=== PATIENT | female | born 1980 | race Caucasian/White ===

== ENCOUNTER 2018-07-14 05:22 | Day surgery (SDC) | payer BC ==
[2018-07-12 11:52] LABS: HEMATOCRIT 40.5 % (36.0-47.0); HEMOGLOBIN 14.2 g/dL (12.0-15.5); MEAN CORPUSCULAR HEMOGLOBIN 31.8 pg (27.0-33.4); MEAN CORPUSCULAR HGB CONC 34.9 g/dL (32.0-36.0); MEAN CORPUSCULAR VOLUME 91 fl (80-97); PLATELET COUNT 314 10^3/uL (150-450); RED BLOOD COUNT 4.46 10^6/uL (3.72-5.28); RED CELL DISTRIBUTION WIDTH 14.3 % (11.5-14.0); WHITE BLOOD COUNT 8.8 10^3/uL (4.0-10.5)
[2018-07-12 11:52] LABS: APPEARANCE,URINE CLEAR; BILIRUBIN,URINE NEGATIVE (NEGATIVE); COLOR,URINE YELLOW; GLUCOSE, URINE NEGATIVE (NEGATIVE); KETONES,URINE NEGATIVE (NEGATIVE); LEUKOCYTE ESTERASE,URINE NEGATIVE (NEGATIVE); NITRITE,URINE NEGATIVE (NEGATIVE); PROTEIN,URINE NEGATIVE (NEGATIVE); URINE SPECIFIC GRAVITY 1.023; UROBILINOGEN,URINE NEGATIVE mg/dL (<2.0)
--- NOTE | 2018-07-12 12:13 | RADIOLOGY REPORT (SQ) ---
EXAM DESCRIPTION: CHEST PA/LATERAL COMPLETED DATE/TIME: 07/12/2018 11:53 am REASON FOR STUDY: PRE-OP COMPARISON: None. EXAM PARAMETERS: NUMBER OF VIEWS: two views TECHNIQUE: Digital Frontal and Lateral radiographic views of the chest acquired. RADIATION DOSE: NA LIMITATIONS: none FINDINGS: LUNGS AND PLEURA: No opacities, masses or pneumothorax. No pleural effusion. MEDIASTINUM AND HILAR STRUCTURES: No masses or contour abnormalities. HEART AND VASCULAR STRUCTURES: Heart normal size. No evidence for failure. BONES: No acute findings. HARDWARE: None in the chest. OTHER: No other significant finding. IMPRESSION: NO SIGNIFICANT RADIOGRAPHIC FINDING IN THE CHEST. TECHNICAL DOCUMENTATION: JOB ID: [id number] [employer]- All Rights Reserved Reading location - IP/workstation name: [email or web address]
[2018-07-12 12:18] LABS: ANION GAP 6 (5-19); BLOOD UREA NITROGEN 14 mg/dL (7-20); CALCIUM 8.9 mg/dL (8.4-10.2); CARBON DIOXIDE 32 mmol/L (22-30); CHLORIDE 101 mmol/L (98-107); GLUCOSE 106 mg/dL (75-110); POTASSIUM 4.4 mmol/L (3.6-5.0); SODIUM 138.5 mmol/L (137-145)
[~2018-07-14 05:22] MED LIST: CEFAZOLIN 1 GM/D5W RTU 1 GM/50 ML RTUPB IV PRN; LACTATED RINGERS 1000 ML IV PRN; LIDOCAINE 0.5% INJ-PF (5 MG/ML) 50 ML SDV SUBCUT PRN
[2018-07-14] MEDS ORDERED: CEFAZOLIN 1 GM/D5W RTU 1 GM/50 ML RTUPB IV ONE (05:58)
[2018-07-14] MEDS ORDERED: LIDOCAINE 1% INJ-PF (10 MG/ML) 30 ML SDV ONE (06:33)
[2018-07-14] MEDS ORDERED: MIDAZOLAM 2 MG/2 ML INJ ONE ×2 (06:38→07:49)
[2018-07-14] MEDS ORDERED: ONDANSETRON HCL INJ/PF 4 MG/2 ML SDV ONE (06:38)
[2018-07-14] MEDS ORDERED: LIDOCAINE 2% INJ-PF (20 MG/ML) 10 ML AMPUL ONE (06:38)
[2018-07-14] MEDS ORDERED: KETOROLAC TROMETHAMINE 60 MG/2 ML SDV ONE (06:38)
[2018-07-14] MEDS ORDERED: FENTANYL CITRATE INJ/PF 100 MCG/2 ML AMPUL ONE (06:38)
[2018-07-14] MEDS ORDERED: PROPOFOL INJ 200 MG/20 ML VIAL IV ONE ×2 (06:39→07:49)
[2018-07-14] MEDS ORDERED: ALBUTEROL SULFATE HFA (90 MCG/PUFF) 200 PUFF/8.5 GM MDI IH ONE (07:49)
[2018-07-14] MEDS ORDERED: SUGAMMADEX SODIUM 200 MG/2 ML SDV IV ONE (07:56)
[2018-07-14] MEDS ORDERED: DEXMEDETOMIDINE INJ 80 MCG/20 ML VIAL IV ONE (08:02)
[2018-07-14] MEDS ORDERED: OXYCODONE-ACETAMINOPHEN 5-325 MG TABLET PO PRN ×4 (08:21→08:25)
[2018-07-14] MEDS ORDERED: MORPHINE SULFATE 10 MG/ML INJ INJ PRN (08:24)
[2018-07-14] MEDS ORDERED: MORPHINE SULFATE 10 MG/ML INJ IV PRN (08:25)
[2018-07-14] MEDS ORDERED: MEPERIDINE HCL/PF INJ 25 MG/1 ML DISP.SYRIN IV PRN (08:25)
[2018-07-14] MEDS ORDERED: DIPHENHYDRAMINE HCL 50 MG/ML VIAL IV PRN (08:25)
[2018-07-14] MEDS ORDERED: ONDANSETRON HCL INJ/PF 4 MG/2 ML SDV IV PRN (08:25)
[2018-07-14] MEDS ORDERED: PROMETHAZINE HCL INJ 25 MG/1 ML VIAL IV PRN ×2 (08:25)
[2018-07-14] MEDS ORDERED: FENTANYL CITRATE INJ/PF 100 MCG/2 ML AMPUL IV PRN ×3 (08:25)
[2018-07-14] MEDS ORDERED: PROMETHAZINE HCL INJ 25 MG/1 ML VIAL IM PRN (08:33)
[2018-07-14] MEDS ORDERED: ACETAMINOPHEN 1,000 MG/100 ML RTUPB IV ONE (08:36)
[2018-07-14] MEDS ORDERED: OXYCODONE-ACETAMINOPHEN 5-325 MG TABLET ONE (09:13)
[2018-07-14 12:18] VITALS: BP 147/98
[2018-07-14] MEDS ORDERED: VECURONIUM BROMIDE INJ 10 MG VIAL IV ONE (13:26)
[2018-07-14] MEDS ORDERED: DEXAMETHASONE SOD PHOSPHATE INJ 4 MG/1 ML VIAL ONE (13:26)
[2018-07-14] MEDS ORDERED: SUCCINYLCHOLINE CHLORIDE INJ 200 MG/10 ML VIAL ONE (13:26)
[2018-07-14] MEDS ORDERED: IBUPROFEN 800 MG TABLET PO SCH (14:00)
--- NOTE | 2018-07-14 16:02 | OPERATIVE REPORT E ---
Operative Report NAME: EVGENY CHEEMA : 1980 AGE: 37Y DATE OF SURGERY: 07/14/2018 ROOM: PREOPERATIVE DIAGNOSIS: Menorrhagia. POSTOPERATIVE DIAGNOSES: 1. Menorrhagia. 2. Small endometrial polyp. OPERATION: Hysteroscopy and NovaSure ablation. SURGEON: KELLY ARMAS M.D. COMPLICATIONS: None surgically. She had some bronchospasm that ultimately required intubation from LMAC. She had 1% lidocaine paracervical block placed. ESTIMATED BLOOD LOSS: 10 mL. FINDINGS: That of a small 4 to 5 mm endometrial polyp that was left in situ and ablated. Pelvic exam *------* by patient's size. Uterine measurements were 6 cm length x 4.5 cm width, and 149 watt-seconds power was used for approximately a minute and a half. INDICATIONS FOR PROCEDURE: The patient had abnormal uterine bleeding unresponsive to usual outpatient management. She desired attempt at definitive therapy. The usual risks of bleeding, infection, anesthesia, and damage to organs or tissues was discussed with the patient who understood. PROCEDURE: The patient was taken to the operating room and was placed in the modified lithotomy position. Adequate anesthesia was attempted, ultimately obtained with intubation. The exam under anesthesia was performed. The bladder was left undrained. Antibiotics had been given. Surgical time out was performed. A 1% lidocaine was placed in the paracervical block region, approximately 5 mL. Uterine measurements were taken and hysteroscopy ensued. Uterine integrity was confirmed prior to burn. Burn ensued. Re-hysteroscopy demonstrated good uterine integrity. The patient was awakened and taken to the recovery room in stable condition. DICTATING PHYSICIAN: KELLY ARMAS M.D. [id number] PHY#: [id number] ID: [id number] JOB#: [id number] ACCT: [id number] cc:KELLY ARMAS M.D. >
== END 2018-07-14 10:10 | disposition home or self-care (01) ==
LOC: OROUT 05:22
PROVIDERS: ATTEND Specialist
DX: N92.0 Excessive and frequent menstruation with regular cycle (principal); N84.0 Polyp of corpus uteri; J98.01 Acute bronchospasm; M19.90 Unspecified osteoarthritis, unspecified site; I10 Essential (primary) hypertension; Z79.899 Other long term (current) drug therapy; F17.210 Nicotine dependence, cigarettes, uncomplicated
CPT/HCPCS: 86900; 86901; 36415 ×2; 86850; 84132; 84703; 85027; 80048; 81001; 71046; 58563; J2250; J0690; J1100; J1885; J3010; J3490 ×6; J0330; J2405; J2704; J0131; 952

== ENCOUNTER → 2018-08-09 | Outpatient (CLI) | payer BC ==
--- NOTE | 2018-08-09 15:24 | RADIOLOGY REPORT (SQ) ---
EXAM DESCRIPTION: L SPINE WHOLE COMPLETED DATE/TIME: 08/09/2018 1:26 pm REASON FOR STUDY: LUMBOSACRAL RADICULOPATHY, RT SI JOINT PAIN COMPARISON: None. NUMBER OF VIEWS: Five views including obliques. TECHNIQUE: AP, lateral, oblique, and sacral radiographic images acquired of the lumbar spine. LIMITATIONS: None. FINDINGS: MINERALIZATION: Normal. SEGMENTATION: Normal. No transitional anatomy. ALIGNMENT: Normal. VERTEBRAE: Maintained height. No fracture or worrisome bone lesion. DISCS: Preserved height. No significant osteophytes or end plate irregularity. POSTERIOR ELEMENTS: Pedicles and facets are intact. No pars defect. Minimal lower lumbar facet arth ropathy. HARDWARE: None in the spine. PARASPINAL SOFT TISSUES: Normal. PELVIS: Intact as visualized. No fractures or worrisome bone lesions. SI joints intact. OTHER: No other significant finding. IMPRESSION: No evidence of acute bony abnormality. No significant disc height loss. Minimal lower lumbar facet arthropathy. TECHNICAL DOCUMENTATION: JOB ID: [id number] [employer]- All Rights Reserved Reading location - IP/workstation name: [email or web address]
--- NOTE | 2018-08-09 15:25 | RADIOLOGY REPORT (SQ) ---
EXAM DESCRIPTION: SACROILIAC JOINTS COMPLETED DATE/TIME: 08/09/2018 1:26 pm REASON FOR STUDY: LUMBOSACRAL RADICULOPATHY, RT SI JOINT PAIN COMPARISON: None. NUMBER OF VIEWS: Three views. TECHNIQUE: AP and oblique views of the sacroiliac joints. LIMITATIONS: None. FINDINGS: MINERALIZATION: Normal. BONES: No acute fracture or dislocation. No worrisome bone lesions. No significant osteophytes. JOINTS: The sacroiliac joints are patent. No unusual widening, sclerosis, or fusion. SOFT TISSUES: No soft tissue swelling. No radio-opaque foreign body. Scattered pelvic phleboliths. OTHER: No other significant finding. IMPRESSION: NORMAL STUDY OF THE SACROILIAC JOINTS. TECHNICAL DOCUMENTATION: JOB ID: [id number] [employer]- All Rights Reserved Reading location - IP/workstation name: [email or web address]
== END ==
LOC: RAD 13:00
PROVIDERS: ATTEND Nurse Practitioner Primary Care
DX: M54.17 Radiculopathy, lumbosacral region (principal)
CPT/HCPCS: 72110; 72200

== ENCOUNTER 2018-11-23 11:31 | Emergency (ER) | payer BC ==
[2018-11-23] MEDS ORDERED: CLINDAMYCIN 600 MG/D5W RTU 600 MG/50 ML RTUPB IV ONE (12:03)
[2018-11-23] MEDS ORDERED: LIDOCAINE 1% INJ (10 MG/ML) 10 ML MDV INJ ONE (12:03)
--- NOTE | 2018-11-23 12:05 | ER Document Report ---
ED Medical Screen (RME) - General Chief Complaint: Abscess Stated Complaint: ABSCESS/LOWER ABDOMINAL Time Seen by Provider: 11/23/18 12:00 Primary Care Provider: AL REAL MD [Primary Care Provider] - Follow up as needed Mode of Arrival: Ambulatory Information source: Patient TRAVEL OUTSIDE OF THE [place] IN LAST 30 DAYS: No - HPI Patient complains to provider of: ABSCESS Notes: 11/23/18 12:04 Patient here with complaints of abscess to the left abdomen. The patient states that this started a few days ago but is progressively gotten worse. She thinks she may have been running some fevers. Exam Abscess with large amount of cellulitis to the left lower abdominal wall. Tenderness to palpation. Nontoxic-appearing with no distress. Plan CBC, CMP, saline lock. IV clindamycin. Patient will require an I&D. An initial examination was made on the patient as part of the triage process, and it was determined a more comprehensive evaluation was necessary. Initial labs were ordered and patient was transferred to another provider in the ED who assumed care and finished evaluation and plan. - Related Data Allergies/Adverse Reactions: No Known Allergies Allergy (Verified 07/25/18 14:07) Past Medical History - Past Medical History Cardiac Medical History: Reports: Hx Hypertension Denies: Hx Coronary Artery Disease, Hx Heart Attack Pulmonary Medical History: Denies: Hx Asthma, Hx Bronchitis, Hx COPD, Hx Pneumonia Neurological Medical History: Denies: Hx Cerebrovascular Accident, Hx Seizures Renal/ Medical History: Denies: Hx Peritoneal Dialysis Musculoskeltal Medical History: Denies Hx Arthritis Psychiatric Medical History: Reports: Hx Depression Past Surgical History: Reports: Hx Orthopedic Surgery - Immunizations Hx Diphtheria, Pertussis, Tetanus Vaccination: Yes History of Influenza Vaccine for 04/2017 - 09/2017 Season: No Physical Exam - Vital signs Vitals: Temp Pulse Resp BP Pulse Ox 98.1 F 100 20 155/109 H 97 11/23/18 11:37 11/23/18 11:37 11/23/18 11:37 11/23/18 11:37 11/23/18 11:37 Course - Vital Signs Vital signs: Temp Pulse Resp BP Pulse Ox 98.1 F 100 20 155/109 H 97 11/23/18 11:37 11/23/18 11:37 11/23/18 11:37 11/23/18 11:37 11/23/18 11:37 Doctor's Discharge - Discharge Referrals: AL REAL MD [Primary Care Provider] - Follow up as needed
[2018-11-23 12:55] LABS: ABSOLUTE EOSINOPHILS # (AUTO) 0.2 10^3/uL (0.0-0.6); ABSOLUTE LYMPHOCYTES (AUTO) 2.3 10^3/uL (0.5-4.7); ABSOLUTE MONOCYTES (AUTO) 0.5 10^3/uL (0.1-1.4); BASOPHILS % (AUTO) 0.5 % (0-2); EOSINOPHILS % (AUTO) 2.3 % (0-6); HEMATOCRIT 41.3 % (36.0-47.0); LYMPHOCYTES % (AUTO) 24.9 % (13-45); MEAN CORPUSCULAR HEMOGLOBIN 32.3 pg (27.0-33.4); MEAN CORPUSCULAR VOLUME 95 fl (80-97); PLATELET COUNT 323 10^3/uL (150-450); RED BLOOD COUNT 4.34 10^6/uL (3.72-5.28); RED CELL DISTRIBUTION WIDTH 14.3 % (11.5-14.0); SEGMENTED NEUTROPHILS % (AUTO) 66.3 % (42-78); TOTAL CELLS COUNTED % (AUTO) 100 %; WHITE BLOOD COUNT 9.1 10^3/uL (4.0-10.5)
[2018-11-23 13:23] LABS: ALANINE AMINOTRANSFERASE 33 U/L (9-52); ALKALINE PHOSPHATASE 79 U/L (38-126); ANION GAP 11 (5-19); ASPARTATE AMINO TRANSFERASE 26 U/L (14-36); BILIRUBIN,DIRECT 0.3 mg/dL (0.0-0.4); BILIRUBIN,TOTAL 0.6 mg/dL (0.2-1.3); BLOOD UREA NITROGEN 14 mg/dL (7-20); CALCIUM 9.4 mg/dL (8.4-10.2); CARBON DIOXIDE 28 mmol/L (22-30); CHLORIDE 102 mmol/L (98-107); GLUCOSE 108 mg/dL (75-110); POTASSIUM 4.2 mmol/L (3.6-5.0); SODIUM 141.2 mmol/L (137-145); TOTAL PROTEIN 7.4 g/dL (6.3-8.2)
[2018-11-23] MEDS ORDERED: LIDOCAINE 1% INJ-PF (10 MG/ML) 30 ML SDV INJ ONE (14:51)
--- NOTE | 2018-11-23 16:29 | ER Document Report ---
ED Skin Rash/Insect Bite/Abscs - General Chief Complaint: Abscess Stated Complaint: ABSCESS/LOWER ABDOMINAL Time Seen by Provider: 11/23/18 12:00 Primary Care Provider: AL REAL MD [ACTIVE STAFF] - Follow up as needed Mode of Arrival: Ambulatory Information source: Patient Notes: Patient is a 38-year-old female comes emergency room complaining of a abscess on her left lower abdominal area. Patient states it started as an ingrown hair and a pimple she tried to pop it approximately 3 days ago and it is since then expanded to much larger size. Patient states she has had only one abscess before in her life and has been quite a few years back. She denies have any history of diabetes but she has a history of hypertension and she does smoke a pack of cigarettes a day. Last missed her period is been no infrequent since she had a bone lesion done in July. Patient denies any fevers no nausea or vomiting she has had no shakes no chills. TRAVEL OUTSIDE OF THE [place] IN LAST 30 DAYS: No - HPI Patient complains to provider of: Tender/swollen area Onset: Other - 3 days Onset/Duration: Gradual, Persistent Quality of pain: Achy Severity: Moderate Pain Level: 3 Skin Character: Abscess, Erythema, Tenderness, Thickening, Warm Skin Temperature: Warm Quality of rash: Itchy, Painful Exacerbated by: Movement, Walking Relieved by: Denies Similar symptoms previously: Yes Recently seen / treated by doctor: No - Related Data Allergies/Adverse Reactions: No Known Allergies Allergy (Verified 07/25/18 14:07) Past Medical History - General Information source: Patient - Social History Smoking Status: Current Every Day Smoker Cigarette use (# per day): Yes - Pack a day Chew tobacco use (# tins/day): No Smoking Education Provided: No Frequency of alcohol use: Rare Drug Abuse: None Family History: Reviewed & Not Pertinent Patient has suicidal ideation: No Patient has homicidal ideation: No - Past Medical History Cardiac Medical History: Reports: Hx Hypertension Denies: Hx Coronary Artery Disease, Hx Heart Attack Pulmonary Medical History: Denies: Hx Asthma, Hx Bronchitis, Hx COPD, Hx Pneumonia Neurological Medical History: Denies: Hx Cerebrovascular Accident, Hx Seizures Renal/ Medical History: Denies: Hx Peritoneal Dialysis Musculoskeletal Medical History: Denies Hx Arthritis Psychiatric Medical History: Reports: Hx Depression Past Surgical History: Reports: Hx Orthopedic Surgery - Immunizations Hx Diphtheria, Pertussis, Tetanus Vaccination: Yes Review of Systems - Review of Systems Constitutional: No symptoms reported EENT: No symptoms reported Cardiovascular: No symptoms reported Respiratory: No symptoms reported Gastrointestinal: No symptoms reported Genitourinary: No symptoms reported Female Genitourinary: No symptoms reported Musculoskeletal: No symptoms reported Skin: See HPI, Other - Abscess/cellulitis Hematologic/Lymphatic: No symptoms reported Neurological/Psychological: No symptoms reported -: Yes All other systems reviewed and negative Physical Exam - Vital signs Vitals: Temp Pulse Resp BP Pulse Ox 98.1 F 100 20 155/109 H 97 11/23/18 11:37 11/23/18 11:37 11/23/18 11:37 11/23/18 11:37 11/23/18 11:37 Interpretation: Normal - Notes Notes: PHYSICAL EXAMINATION: GENERAL: Patient is well-nourished well-developed morbidly obese female who is in no apparent distress on physical exam but does appear to be somewhat uncomfortable. HEAD: Atraumatic, normocephalic. LUNGS: Breath sounds clear to auscultation bilaterally and equal. No wheezes rales or rhonchi. HEART: Regular rate and rhythm without murmurs ABDOMEN: Soft, nontender, nondistended abdomen. No guarding, no rebound. Further examination shows patient has a large area on the left lower abdominal section. There is approximately a area that is 27 cm long by 15 cm wide is the base of the cellulitis. There is in the center area a 6 cm x 3 cm more indurated center and that has in the middle of it a one by one area where the original lesion occurred the pimple/infected hair. This is also the area that appears to where they have attempted to express any kind of pus from it. Palpation of the area does show some induration some mild fluctuance but only in the middle of that 1 x 1 cm area. It is moderately tender to touch at this time. It does not feel exceptionally deep on palpation and mostly feels like inflamed tissue. There is a large amount of striated in the area as well that are more firm to palpation secondary to the inflammation. Female : deferred Musculoskeletal: Normal range of motion, no pitting or edema. No cyanosis. NEUROLOGICAL: Normal speech, normal gait. Normal sensory, motor exams PSYCH: Normal mood, normal affect. SKIN: Poor description of skin condition. See abdomen above Course - Re-evaluation Re-evalutation: 11/23/18 16:29 At this time patient's white count is normal. She looks good and I believe we can try outpatient therapy and treatment at this point. I have informed patient to keep an eye on it if she should spike a fever she should notice expansion outside of the marked lines that is prominent she is to return to ER for possible admission at that time. She is in agreement with this treatment. We are also placing her on 2 antibiotics doxycycline and Keflex. Mom also placing patient on Diflucan. She is to use warm moist compresses 3-4 times a day which we discussed her not to go into the microwave. She is also not to go into a [employer] stream pool or bathtub until such time as the packing has been pulled. - Vital Signs Vital signs: Temp Pulse Resp BP Pulse Ox 98.1 F 100 20 155/109 H 97 11/23/18 11:37 11/23/18 11:37 11/23/18 11:37 11/23/18 11:37 11/23/18 11:37 - Laboratory Result Diagrams: 11/23/18 12:28 11/23/18 12:28 Laboratory results interpreted by me: 11/23/18 12:28 RDW 14.3 H Procedures - Incision and Drainage Left Lower Abdomen Time completed: 16:31 Type: Complex Anesthetic type: 1% Lidocaine mL's of anesthetic: 8 Blade size: 11 I&D procedure: Betadine prep applied, Chlorprep applied Incision Method: Incision made by scalpel Amount/type of drainage: Thick core was removed with applied pressure. Then followed moderate amoun Notes: 11/23/18 16:32 There is a moderate amount of some whitish-pinkish blood mix of pus which was expressed outside of the initial incision point. The incision was approximately 1 cm to 1-1/2 cm in length. Loculations were broken up with forceps. And then packed with approximately 7 to 8 inches of out-of-home. Patient tolerated this procedure without a problem. Discharge - Discharge Clinical Impression: Abscess Cellulitis Qualifiers: Site of cellulitis: trunk Site of cellulitis of trunk: abdominal wall Qualified Code(s): L03.311 - Cellulitis of abdominal wall Condition: Stable Disposition: HOME, SELF-CARE Instructions: Abscess ([facility]), Cephalexin ([facility]), MRSA Cellulitis ([facility]), Post Incision and Drainage, Doxycycline ([facility]) Additional Instructions: As we discussed home and rest. Use warm moist compresses 3-4 times a day with a wash rag as warm as you stand from the sink do not set it in the microwave or heated up beyond being able to touch. I am also writing for Diflucan pills this will stop to get a yeast infection. If any chance of the string comes out and is not a huge deal just continue with the moist compresses and monitor progress of the area. Should the area start to expand to get worse to do spike a fever becoming chilled return to ER once for possible admission. If strength does not come out return to ER 48 hours for a recheck and pulling of the packing. Prescriptions: Cephalexin Monohydrate [Keflex 500 mg Capsule] 500 mg PO QID #40 capsule Doxycycline Hyclate 100 mg PO BID #20 capsule Fluconazole [Diflucan] 150 mg PO ONCE PRN #2 tablet PRN Reason: Forms: Elevated Blood Pressure, Smoking Cessation Education Referrals: AL REAL MD [ACTIVE STAFF] - Follow up as needed
[2018-11-23 16:57] VITALS: BP 159/106
== END 2018-11-23 16:56 | disposition home or self-care (01) ==
LOC: ER 11:31
DX: L02.211 Cutaneous abscess of abdominal wall (principal); L03.311 Cellulitis of abdominal wall; I10 Essential (primary) hypertension; F17.210 Nicotine dependence, cigarettes, uncomplicated
CPT/HCPCS: 99283; 96365; 36415; 87040; 87070; 87205; 85025; 87075; 87077; 80053; 87186; 10060; A6266

== ENCOUNTER 2018-11-25 14:49 | Emergency (ER) | payer BC ==
[2018-11-25] MEDS ORDERED: VANCOMYCIN HCL INJ 1000 MG VIAL IV ONE ×2 (16:01→19:45)
--- NOTE | 2018-11-25 16:06 | ER Document Report ---
ED Medical Screen (RME) - General Chief Complaint: Wound Infection Stated Complaint: RASH Time Seen by Provider: 11/25/18 15:58 Primary Care Provider: NICOLETTE REAL NP [Primary Care Provider] - Follow up as needed TRAVEL OUTSIDE OF THE [place] IN LAST 30 DAYS: No - HPI Notes: 11/25/18 16:01 Patient is a 38-year-old female who presents for recheck of her abscess/cellulitis to her left lower abdomen after incision and drainage was performed 2 days ago. Patient states that she has noticed expansion of the erythema from the marked border. Patient has felt subjectively warm/feverish. She has been taking her doxycycline and Keflex as directed. Wound culture did grow MRSA and appears to be resistant to cephalosporins, but susceptible to doxycycline. Denies DE LA O, neck pain, URI, CP, SOB. I have treated and performed a rapid initial assessment of this patient. A comprehensive ED assessment and evaluation of the patient, analysis of test results and completion of medical decision making process will be conducted by additional ED providers. PHYSICAL EXAMINATION: GENERAL: Well-appearing, well-nourished and in no acute distress. A&Ox4. Answers questions appropriately. LUNGS: Breath sounds clear to auscultation bilaterally and equal. No wheezes rales or rhonchi. HEART: Regular rate and rhythm without murmurs, rubs, gallops. Skin: + erythema, large area, tenderness noted to the left lower abd. Erythema does expand beyond medial lower marked skin border. - Related Data Allergies/Adverse Reactions: No Known Allergies Allergy (Verified 07/25/18 14:07) Past Medical History - Past Medical History Cardiac Medical History: Reports: Hx Hypertension Denies: Hx Coronary Artery Disease, Hx Heart Attack Pulmonary Medical History: Denies: Hx Asthma, Hx Bronchitis, Hx COPD, Hx Pneumonia Neurological Medical History: Denies: Hx Cerebrovascular Accident, Hx Seizures Renal/ Medical History: Denies: Hx Peritoneal Dialysis Musculoskeltal Medical History: Denies Hx Arthritis Psychiatric Medical History: Reports: Hx Depression Past Surgical History: Reports: Hx Orthopedic Surgery - Immunizations Hx Diphtheria, Pertussis, Tetanus Vaccination: Yes History of Influenza Vaccine for 04/2017 - 09/2017 Season: No Physical Exam - Vital signs Vitals: Temp Pulse Resp BP Pulse Ox 98.1 F 108 H 20 140/85 H 97 11/25/18 15:24 11/25/18 15:24 11/25/18 15:24 11/25/18 15:24 11/25/18 15:24 Course - Vital Signs Vital signs: Temp Pulse Resp BP Pulse Ox 98.1 F 108 H 20 140/85 H 97 11/25/18 15:24 11/25/18 15:24 11/25/18 15:24 11/25/18 15:24 11/25/18 15:24 Doctor's Discharge - Discharge Referrals: NICOLETTE REAL NP [Primary Care Provider] - Follow up as needed
[2018-11-25 16:31] LABS: ABSOLUTE EOSINOPHILS # (AUTO) 0.2 10^3/uL (0.0-0.6); ABSOLUTE LYMPHOCYTES (AUTO) 2.5 10^3/uL (0.5-4.7); ABSOLUTE MONOCYTES (AUTO) 0.5 10^3/uL (0.1-1.4); ABSOLUTE NEUT (AUTO) 6.4 10^3/uL (1.7-8.2); BASOPHILS % (AUTO) 0.4 % (0-2); EOSINOPHILS % (AUTO) 2.1 % (0-6); HEMATOCRIT 43.4 % (36.0-47.0); HEMOGLOBIN 14.4 g/dL (12.0-15.5); LYMPHOCYTES % (AUTO) 26.2 % (13-45); MEAN CORPUSCULAR HEMOGLOBIN 31.5 pg (27.0-33.4); MEAN CORPUSCULAR HGB CONC 33.2 g/dL (32.0-36.0); MEAN CORPUSCULAR VOLUME 95 fl (80-97); MONOCYTES % (AUTO) 5.4 % (3-13); PLATELET COUNT 396 10^3/uL (150-450); RED BLOOD COUNT 4.58 10^6/uL (3.72-5.28); RED CELL DISTRIBUTION WIDTH 14.4 % (11.5-14.0); SEGMENTED NEUTROPHILS % (AUTO) 65.9 % (42-78); TOTAL CELLS COUNTED % (AUTO) 100 %; WHITE BLOOD COUNT 9.7 10^3/uL (4.0-10.5)
[2018-11-25 16:51] LABS: ALANINE AMINOTRANSFERASE 30 U/L (9-52); ALBUMIN 4.6 g/dL (3.5-5.0); ALKALINE PHOSPHATASE 91 U/L (38-126); ANION GAP 11 (5-19); ASPARTATE AMINO TRANSFERASE 27 U/L (14-36); BILIRUBIN,DIRECT 0.3 mg/dL (0.0-0.4); BILIRUBIN,TOTAL 0.5 mg/dL (0.2-1.3); BLOOD UREA NITROGEN 15 mg/dL (7-20); CALCIUM 9.4 mg/dL (8.4-10.2); CARBON DIOXIDE 29 mmol/L (22-30); CHLORIDE 101 mmol/L (98-107); GLUCOSE 126 mg/dL (75-110); POTASSIUM 3.9 mmol/L (3.6-5.0); SODIUM 141.3 mmol/L (137-145); TOTAL PROTEIN 8.6 g/dL (6.3-8.2)
[2018-11-25] MEDS ORDERED: VANCOMYCIN HCL INJ 1000 MG VIAL ONE (19:03)
--- NOTE | 2018-11-25 20:47 | RADIOLOGY REPORT (SQ) ---
EXAM DESCRIPTION: US ABDOMEN LIMITED COMPLETED DATE/TME: 11/25/2018 19:51 CLINICAL HISTORY: 38 years, Female, abscess/cellulitis COMPARISON: None. TECHNIQUE: Sonographic assessment of the left lower quadrant was performed with Doppler. LIMITATIONS: None. FINDINGS: Focused sonographic evaluation of the left lower quadrant was performed at the site of the patient's pain. Mild soft tissue swelling is evident about this location; however, no drainable fluid collection is identified. IMPRESSION: Soft tissue swelling without underlying drainable fluid collection. copyright 2010 [employer]- All Rights Reserved
[2018-11-25] MEDS ORDERED: HYDROMORPHONE HCL INJ/PF 2 MG/ML AMPULE IV ONE (21:37)
[2018-11-25] MEDS ORDERED: ONDANSETRON HCL INJ/PF 4 MG/2 ML SDV IV ONE (21:38)
--- NOTE | 2018-11-25 21:44 | ER Document Report ---
ED Skin Rash/Insect Bite/Abscs - General Chief Complaint: Wound Infection Stated Complaint: RASH Time Seen by Provider: 11/25/18 15:58 Primary Care Provider: NICOLETTE REAL NP [Primary Care Provider] - Follow up as needed Mode of Arrival: Ambulatory Information source: Patient Notes: Patient is a 38-year-old female comes back to the emergency room after being seen 2 days ago for a abscess in her left lower quadrant area of her abdomen. She had an I&D which was performed by myself which noted a large amount of pus back. I had outlined the area with the skin marker and believed it measured 27 cm long by 15 cm wide. In the middle of that I had placed a 1/2 cm incision and expressed moderate amount of pus out. I then packed it was 7 to 8 inches of iodoform. Patient returns tonight because the redness has traveled outside the distal end of the zone that I had marked. It is extended out approximately 8 cm. Patient also states that the pain was not getting any better. She denies any fever she denies any cough shortness of breath or other complaints at this time. She is back because she just does not feel it is healing the way it should after being on 2 antibiotics. TRAVEL OUTSIDE OF THE [place] IN LAST 30 DAYS: No - HPI Patient complains to provider of: Skin rash/lesion, Tender/swollen area Onset: Last week Onset/Duration: Gradual, Persistent Quality of pain: Achy, Throbbing Severity: Moderate Pain Level: 3 Skin Character: Abscess, Drainage, Erythema, Tenderness, Thickening Skin Temperature: Warm Quality of rash: Painful Identify cause: No Similar symptoms previously: Yes Recently seen / treated by doctor: Yes - Related Data Allergies/Adverse Reactions: No Known Allergies Allergy (Verified 07/25/18 14:07) Past Medical History - General Information source: Patient - Social History Smoking Status: Current Every Day Smoker Cigarette use (# per day): Yes - Pack a day Chew tobacco use (# tins/day): No Smoking Education Provided: Yes Frequency of alcohol use: None Drug Abuse: None Lives with: Family Family History: Reviewed & Not Pertinent Patient has suicidal ideation: No Patient has homicidal ideation: No - Past Medical History Cardiac Medical History: Reports: Hx Hypertension Denies: Hx Coronary Artery Disease, Hx Heart Attack Pulmonary Medical History: Denies: Hx Asthma, Hx Bronchitis, Hx COPD, Hx Pneumonia Neurological Medical History: Denies: Hx Cerebrovascular Accident, Hx Seizures Renal/ Medical History: Denies: Hx Peritoneal Dialysis Musculoskeletal Medical History: Denies Hx Arthritis Psychiatric Medical History: Reports: Hx Depression Past Surgical History: Reports: Hx Orthopedic Surgery - Immunizations Hx Diphtheria, Pertussis, Tetanus Vaccination: Yes Review of Systems - Review of Systems Constitutional: No symptoms reported EENT: No symptoms reported Cardiovascular: No symptoms reported Respiratory: No symptoms reported Gastrointestinal: No symptoms reported Genitourinary: No symptoms reported Female Genitourinary: No symptoms reported Musculoskeletal: No symptoms reported Skin: See HPI, Lesions Hematologic/Lymphatic: No symptoms reported Neurological/Psychological: No symptoms reported Physical Exam - Vital signs Vitals: Temp Pulse Resp BP Pulse Ox 98.1 F 108 H 20 140/85 H 97 11/25/18 15:24 11/25/18 15:24 11/25/18 15:24 11/25/18 15:24 11/25/18 15:24 Interpretation: Hypertensive, Tachycardic - Notes Notes: PHYSICAL EXAMINATION: GENERAL: Patient is a 38-year-old morbidly obese female who is in no apparent distress on physical exam tonight. She does still appear to be uncomfortable. HEAD: Atraumatic, normocephalic. LUNGS: Breath sounds clear to auscultation bilaterally and equal. No wheezes rales or rhonchi. HEART: tachycardic rate and rhythm without murmurs ABDOMEN: examination patient's abdomen area of concern is her left lower quadrant area. The area of the incision and drainage looks to have improved and gotten less angry appearing. Still moderately tender to palpate around the opening. There is palpable induration or thickening of the what appears to be tissue which may be inflamed from the infection. There is no fluctuance that is felt on palpation. The cellulitis on the width of it has stayed the same and possibly dropped slightly however the extension of it is going on approximately 8 cm at the distal end. There is no palpable fluctuance on this entire area. Moderate tenderness is noted. Female : deferred Musculoskeletal: Normal range of motion, no pitting or edema. No cyanosis. NEUROLOGICAL: Normal speech, normal gait. Normal sensory, motor exams PSYCH: Normal mood, normal affect. SKIN: Warm, Dry, normal turgor, no rashes or lesions noted. Course - Re-evaluation Re-evalutation: 11/25/18 22:53 Patient received her vancomycin is ordered from [facility]. Her sensitivities came back and that we took 2 days ago she is resistant to the Keflex she was sensi tive to the doxycycline but she is not responding well enough so I am going to add Bactrim as well. She can start this tomorrow. Her white count is normal and actually the area looks better even though it expanded a little bit at the distal end. I have informed patient we will try her outpatient one more time for 48 hours if for any reason he gets worse or if she spikes a fever she is to come back for probable admission at that time. Patient is in agreement with this plan. I did pull the packing and was not able to express any more pus from the area. Her ultrasound came back that showed no fluid collections in the area of her pain or discomfort. So we have made progress with the doxycycline I feel it is a appropriate to let her go back home for 1 more outpatient try. I will write her for some pain medication that I did not do the other day and she will follow-up here in 48 hours. - Vital Signs Vital signs: Temp Pulse Resp BP Pulse Ox 97.2 F 97 20 131/96 H 98 11/25/18 22:23 11/25/18 22:23 11/25/18 15:24 11/25/18 22:23 11/25/18 22:23 - Laboratory Result Diagrams: 11/25/18 16:15 11/25/18 16:15 Laboratory results interpreted by me: 11/25/18 11/25/18 16:15 16:15 RDW 14.4 H Glucose 126 H Total Protein 8.6 H Discharge - Discharge Clinical Impression: Cellulitis of abdominal wall Condition: Stable Disposition: HOME, SELF-CARE Instructions: Oral Narcotic Medication ([facility]), Cellulitis ([facility]) Additional Instructions: Home and rest. As we discussed continue with the warm moist compresses. I have also explained to you that on the 2 antibiotics of which you want you were sensitive for 1 and resistant for the other. I still believe that this is an outpatient process because your white count is still normal and you have had no fevers and we have one antibiotic that has been working on it. I am adding a second antibiotic now also stop the Keflex and we will put you on Bactrim which is also sensitive to. Continue with the doxycycline twice a day and the Bactrim will be added in twice a day as well. I want you to return to ER in 48 hours fo r a recheck or return here sooner if it is not getting any better or you have a fever or increased amount of pain. You may return here at any time you have a concern. Prescriptions: Oxycodone HCl/Acetaminophen [Percocet 7.5-325 mg Tablet] 1 each PO Q6 PRN #12 tablet PRN Reason: Sulfamethoxazole/Trimethoprim [Bactrim Ds Tablet] 1 each PO BID #20 tablet Forms: Elevated Blood Pressure, Smoking Cessation Education Referrals: NICOLETTE REAL NP [Primary Care Provider] - Follow up as needed
[2018-11-25 22:28] VITALS: BP 131/96
== END 2018-11-25 23:13 | disposition home or self-care (01) ==
LOC: ER 14:49
DX: L03.311 Cellulitis of abdominal wall (principal); F17.210 Nicotine dependence, cigarettes, uncomplicated; I10 Essential (primary) hypertension
CPT/HCPCS: 99283; 36415; 87040; 84703; 85025; 80053; 76705; J1170; J2405; J3370; 96365

== ENCOUNTER 2019-08-10 06:43 | Emergency (ER) | payer BC ==
[2019-08-10 06:52] VITALS: BP 154/103
== END 2019-08-10 08:25 | disposition left against medical advice (07) ==
LOC: ER 06:43
DX: Z53.21 Procedure and treatment not carried out due to patient leaving prior to being seen by health care provider (principal)